=== PATIENT | female | born 1985 | race Caucasian/White ===

== ENCOUNTER 2020-03-17 16:04 | Outpatient (REF) | payer BC, SELFPAY ==
[2020-03-17 17:07] LABS: MANUAL DIFF FLAG NO
[2020-03-17 17:21] LABS: Basophils Absolute Auto 0.1 X10*3/uL (0.0-0.2); Basophils Percent Auto 0.6 % (0-2); Eosinophils Absolute Auto 0.1 X10*3/uL (0.0-0.4); Eosinophils Percent Auto 1.3 % (0-4); Hematocrit 41.3 % (37-47); Hemoglobin 13.5 g/dl (12.0-16.0); Imm Gran Abs Auto 0.03 X10*3/uL (0.00-0.03); Imm Gran Pct Auto 0.4 % (0.0-0.4); Lymphocytes Absolute Auto 2.8 X10*3/uL (1.2-4.9); Lymphocytes Percent Auto 33.2 % (20-40); Mean Corpuscular HGB Conc 32.7 g/dl (31.0-35.0); Mean Corpuscular Hemoglobin 27.7 pg (27.0-33.0); Mean Corpuscular Volume 84.6 fL (80-98); Mean Platelet Volume 9.3 fL (9.4-12.3); Monocytes Absolute Auto 0.6 X10*3/uL (0.1-1.2); Monocytes Percent Auto 7.3 % (2-11); Neutrophils Absolute Auto 4.9 X10*3/uL (2.0-8.3); Neutrophils Percent Auto 57.2 % (45-73); Platelet Count 274 X10*3/uL (160-400); Red Blood Count 4.88 X10*6/uL (4.20-5.50); Red Cell Distribution Width 13.2 % (11.0-16.0); White Blood Count 8.5 X10*3/uL (4.8-10.8)
[2020-03-17 17:30] LABS: Alanine Aminotransferase 27 U/L (0-31); Albumin Level 4.4 g/dL (3.5-5.0); Alkaline Phosphatase 69 U/L (39-117); Anion Gap 12 (12-20); Aspartate Amino Transferase 16 U/L (5-31); Bilirubin Total 0.4 mg/dL (0.0-1.0); Blood Urea Nitrogen 13 mg/dL (9-16); C Reactive Protein 0.48 mg/dL (< or = 0.50); Calcium 9.2 mg/dL (8.4-10.2); Carbon Dioxide 28 mmol/L (22-29); Chloride 104 mmol/L (96-108); Estimated Glomerular Filt Rate > 60; Glucose Random 101 mg/dL (60-115); Potassium 3.5 mmol/l (3.3-5.1); Sodium 140 mmol/L (135-145); Total Protein 7.3 g/dL (6.5-8.0)
[2020-03-17 17:52] LABS: Free T4 (Free Thyroxine) 0.91 ng/dL (0.71-1.85); Thyroid Stimulating Hormone 1.85 uIU/mL (0.32-4.0)
[2020-03-17 19:24] LABS: Glucose Urine UA NEG (NEG); Leukocyte Esterase Urine NEG (NEG); Nitrite Urine NEG (NEG); Specific Gravity - Urine 1.015 (1.005-1.025); Urine Blood NEG (NEG); Urine Ketones NEG (NEG); Urine Protein NEG (NEG-TRACE)
[2020-03-17 19:29] LABS: Appearance Urine CLEAR; Color Urine YELLOW
== END 2020-03-17 16:05 | disposition home or self-care (01) ==
LOC: HO.LAB 16:04
PROVIDERS: PCP Internal Medicine; Visit Provider Internal Medicine
DX: I10 Essential (primary) hypertension (principal); R63.5 Abnormal weight gain; E56.1 Deficiency of vitamin K
CPT/HCPCS: 36415; 80053; 81003; 84439; 84443; 85025; 86140

== ENCOUNTER 2020-03-29 10:22 | Outpatient (REF) | payer BC, SELFPAY ==
--- NOTE | 2020-03-29 | US_ITS ---
EXAMINATION: US RENAL DOPPLER US RENAL, BILATERAL CLINICAL INFORMATION: Hypertension. COMPARISON: None TECHNIQUE: Routine grayscale and color Doppler imaging of kidneys was performed. FINDINGS: The right kidney measures 11.2 cm in length, 4.67 cm in AP and 4.8 cm in width. There is normal cortical thickness. There are no echogenic stones or hydronephrosis. The left kidney measures 12.5 cm in length, 5.3 cm in AP and 5.4 cm in transverse dimension. Doppler Imaging: Right kidney: Renal artery velocity proximal segment measures 163 cm/s, mid segment measures 110 cm/s, distal segment measures 76.4 cm/s. Renal artery ratio measures 2.1. Average resistive index measures 0.69. Mid abdominal aorta velocity measures 78.4 cm/s. Left kidney: Renal artery velocity proximal segment measures 119 cm/s, mid segment measures 208 cm/s, distal segment measures 248 cm/s. Renal/aortic ratio measures 3.2. Average resistive index measures 0.68. US/US renal BI IMPRESSION: Normal bilateral renal ultrasound. Elevated mid and distal segment left renal artery velocities but normal resistive index and normal renal/aortic ratio. Findings are suspicious for mild stenosis involving the mid or the distal renal artery. Normal right renal artery Doppler exam.
--- NOTE | 2020-03-29 | US_ITS ---
EXAMINATION: US RENAL DOPPLER US RENAL, BILATERAL CLINICAL INFORMATION: Hypertension. COMPARISON: None TECHNIQUE: Routine grayscale and color Doppler imaging of kidneys was performed. FINDINGS: The right kidney measures 11.2 cm in length, 4.67 cm in AP and 4.8 cm in width. There is normal cortical thickness. There are no echogenic stones or hydronephrosis. The left kidney measures 12.5 cm in length, 5.3 cm in AP and 5.4 cm in transverse dimension. Doppler Imaging: Right kidney: Renal artery velocity proximal segment measures 163 cm/s, mid segment measures 110 cm/s, distal segment measures 76.4 cm/s. Renal artery ratio measures 2.1. Average resistive index measures 0.69. Mid abdominal aorta velocity measures 78.4 cm/s. Left kidney: Renal artery velocity proximal segment measures 119 cm/s, mid segment measures 208 cm/s, distal segment measures 248 cm/s. Renal/aortic ratio measures 3.2. Average resistive index measures 0.68. US/US renal doppler IMPRESSION: Normal bilateral renal ultrasound. Elevated mid and distal segment left renal artery velocities but normal resistive index and normal renal/aortic ratio. Findings are suspicious for mild stenosis involving the mid or the distal renal artery. Normal right renal artery Doppler exam.
== END 2020-03-29 10:23 | disposition home or self-care (01) ==
LOC: HO.US 10:22
PROVIDERS: PCP Internal Medicine; Visit Provider Internal Medicine
DX: I16.0 Hypertensive urgency (principal); R07.9 Chest pain, unspecified
CPT/HCPCS: 76775; 93975

== ENCOUNTER 2022-07-06 08:30 | Outpatient (REF) | payer BC, SELFPAY ==
[2022-07-06 09:27] LABS: Estimated Average Glucose 105 mg/dL; Hemoglobin A1c % 5.3 %
[2022-07-06 09:32] LABS: Alanine Aminotransferase 30 U/L (0-31); Albumin Level 4.7 g/dL (3.5-5.0); Alkaline Phosphatase 70 U/L (39-117); Anion Gap 15 (12-20); Aspartate Amino Transferase 20 U/L (5-31); Bilirubin Total 0.8 mg/dL (0.0-1.0); Blood Urea Nitrogen 15 mg/dL (9-16); Calcium 9.9 mg/dL (8.4-10.2); Carbon Dioxide 22 mmol/L (22-29); Chloride 109 mmol/L (96-108); Cholesterol 254 mg/dL; Estimated Glomerular Filt Rate > 60; Glucose Fasting 86 mg/dL (60-99); HDL Cholesterol 33 mg/dL; LDL Cholesterol Calculated 197 mg/dl; Potassium 3.7 mmol/L (3.3-5.1); Sodium 142 mmol/L (135-145); Total Protein 7.7 g/dL (6.5-8.0); Triglycerides 123 mg/dL
[2022-07-08 16:24] LABS: CRP High Sensitivity 2.6 mg/L
== END 2022-07-06 08:31 | disposition home or self-care (01) ==
LOC: HO.LAB 08:30
PROVIDERS: PCP Internal Medicine; Visit Provider Internal Medicine
DX: I10 Essential (primary) hypertension (principal); R07.89 Other chest pain; Z82.49 Family history of ischemic heart disease and other diseases of the circulatory system
CPT/HCPCS: 36415; 80053; 80061; 83036; 86141

== ENCOUNTER → 2022-08-15 15:04 | Outpatient (REF) | payer BC, SELFPAY ==
--- NOTE | 2022-08-15 15:07 | CA_ITS ---
Transthoracic Echocardiogram Patient (Last, First, Middle): Thelma Gallagher T Gender: Female Date of : 1985 Age: 36 Procedure Date: 08/15/2022 Procedure Type: Transthoracic Echocardiogram Location: OP Height: 152.4 cm Weight: 66.23 kg BSA: 1.63 m2 Heart Rate: bpm BP: 142 / 106 mmHg [employer] Supervisor: TO Referring MD: Rei Aleman MD Symptoms: R07.89 OTHER CHEST PAIN, HTN I10 ASSESS LV FUNCTION Study Quality: Fair ECG Rhythm: Sinus Conclusions: - The left ventricular systolic function is normal. The calculated ejection fraction is 60% by biplane method. - No obvious valvular pathology seen on this study. Findings Left Ventricle Normal left ventricular cavity size. There is normal left ventricular wall thickness. The left ventricular systolic function is normal. The calculated ejection fraction is 60% by biplane method. There is no evidence of regional wall motion abnormalities. Diastolic function is normal for age. LV peak GLS -25%. Right Ventricle Normal right ventricular cavity size and systolic function. Atria Both atria are normal in size. Aortic Valve There is a normal trileaflet aortic valve. There is no aortic valve stenosis. There is no aortic valve regurgitation. Mitral Valve The mitral valve appears normal. There is no mitral valve regurgitation. There is no mitral valve stenosis. Pulmonic Valve The pulmonic valve is likely normal. Tricuspid Valve There is trace tricuspid valve regurgitation. There is no evidence of pulmonary hypertension. Great Vessels The asc aorta is normal in size. Venous The inferior vena cava is normal in size and collapses greater than 50% with inspiration. Pericardium/Pleural There is no evidence of pericardial effusion. Prior Study Comparison No prior study available for comparison. Recommendations, Care & Conclusions No obvious valvular pathology seen on this study. Measurements 2D Linear Measurements IVSd: 0.97 0.6-0.9/0.6-1.0 cm LVIDd: 4.31 3.9-5.3/4.2-5.9 cm LVIDd Index: 2.64 2.4-3.2/2.2-3.1 cm/m2 LVIDs: 2.95 2.0-3.6 cm LVPWd: 0.82 0.7-1.1 cm LA Diam: 3.20 2.7-3.8/3.0-4.0 cm LAIDs Index: 1.96 1.5-2.3 cm/m2 LV Mass: 152.91 67-162/88-224 g LV Mass Index: 93.81 43-95/49-115 g/m2 LVOT Diam: 1.90 3.0+(-)1.3 cm 2D Systolic Function EF 4C: 58.90 >55% EF 2C: 62.70 >55% EF BiP: 60.10 >55% Mitral Valve MV Pk E: 1.14 MV PK A: 0.53 MV Decel Time: 248.00 E/A: 2.20 E'Lateral: 10.00 E'Medial: 8.27 E/E' Med: 13.80 E/E' Lat: 11.40 PHT: 73.00 MVA PHT: 3.01 Decel [place]: 4.60 Aortic Valve AoV Pk Josh: 1.43 AoV Mn Josh: 1.00 AoV VTI: 0.33 AoV Pk Grad: 8.00 Aov Mn Grad: 4.00 JACEY Cont.VTI: 1.95 LVOT LVOT Pk Josh: 0.98 LVOT Mn Josh: 0.61 LVOT VTI: 0.23 LVOT Pk Grad: 4.00 LVOT Mn Grad: 2.00 LVOT Diam: 1.90 LVOT Area: 2.84 Diastolic Function MV Pk E: 1.14 MV Pk A: 0.53 E/A: 2.20 E'Medial: 8.27 E/E' Med: 13.80 E' Laterial: 10.00 E/E' Lat: 11.40 Right Ventricle TAPSE (mm): 24.20 TVS' Josh: 11.90 Tricuspid Valve TR Pk Josh: 2.63 TR Pk Grad: 28.00 RA Press: 3.00 RVSP: 31.00 Great Vessels Aorta Sinus of Valsalva: 2.99 2.0-3.5 cm Ao Asc: 3.10 2.1-3.4 cm Updated in Other Vendor System with Status of Final Rojas Corado MD electronically signed on 08/17/2022 11:06:42 AM with status of Final
== END ==
LOC: HO.CARD 15:04
PROVIDERS: PCP Internal Medicine; Visit Provider Internal Medicine
DX: R07.89 Other chest pain (principal); I10 Essential (primary) hypertension
CPT/HCPCS: 93306; 93356

== ENCOUNTER 2022-10-09 10:24 | Outpatient (REF) | payer BC, SELFPAY ==
[2022-10-09 12:38] LABS: Cholesterol 235 mg/dL; HDL Cholesterol 34 mg/dL; LDL Cholesterol Calculated 177 mg/dl; Triglycerides 121 mg/dL
== END 2022-10-09 10:25 | disposition home or self-care (01) ==
LOC: HO.LAB 10:24
PROVIDERS: PCP Internal Medicine; Visit Provider Internal Medicine
DX: E78.00 Pure hypercholesterolemia, unspecified (principal)
CPT/HCPCS: 36415; 80061

== ENCOUNTER 2022-10-13 10:07 | Outpatient (REF) | payer BC, SELFPAY ==
[2022-10-13 10:23] LABS: MANUAL DIFF FLAG NO
[2022-10-13 10:40] LABS: Basophils Absolute Auto 0.1 X10*3/uL (0.0-0.2); Basophils Percent Auto 0.8 % (0-2); Eosinophils Absolute Auto 0.1 X10*3/uL (0.0-0.4); Eosinophils Percent Auto 1.7 % (0-4); Hematocrit 39.8 % (37.0-47.0); Hemoglobin 12.9 g/dl (12.0-16.0); Imm Gran Abs Auto 0.02 X10*3/uL (0.00-0.03); Imm Gran Pct Auto 0.3 % (0.0-0.4); Lymphocytes Absolute Auto 2.4 X10*3/uL (1.2-4.9); Lymphocytes Percent Auto 31.9 % (20-40); Mean Corpuscular HGB Conc 32.4 g/dl (31.0-35.0); Mean Corpuscular Hemoglobin 28.8 pg (27.0-33.0); Mean Corpuscular Volume 88.8 fL (80.0-98.0); Mean Platelet Volume 10.2 fL (9.4-12.3); Monocytes Absolute Auto 0.5 X10*3/uL (0.1-1.2); Neutrophils Absolute Auto 4.4 x10*3/uL (2.0-8.3); Neutrophils Percent Auto 58.3 % (45-73); Platelet Count 251 X10*3/uL (160-400); Red Blood Count 4.48 X10*6/uL (4.20-5.50); Red Cell Distribution Width 14.2 % (11.0-16.0); White Blood Count 7.5 X10*3/uL (4.8-10.8)
[2022-10-13 10:53] LABS: Estimated Average Glucose 88 mg/dL; Hemoglobin A1c % 4.7 %
[2022-10-13 11:20] LABS: Alanine Aminotransferase 13 U/L (0-31); Albumin Level 4.3 g/dL (3.5-5.0); Alkaline Phosphatase 55 U/L (39-117); Anion Gap 11 (12-20); Aspartate Amino Transferase 12 U/L (5-31); Bilirubin Total 0.5 mg/dL (0.0-1.0); Blood Urea Nitrogen 15 mg/dL (9-16); C Reactive Protein < 0.10 mg/dL (< or = 0.50); Carbon Dioxide 25 mmol/L (22-29); Chloride 110 mmol/L (96-108); Estimated Glomerular Filt Rate > 60; Glucose Random 95 mg/dL (60-115); Magnesium 2.2 mg/dL (1.6-2.6); Sodium 142 mmol/L (135-145); Total Protein 7.4 g/dL (6.5-8.0)
[2022-10-13 11:26] LABS: Free T4 (Free Thyroxine) 1.03 ng/dL (0.71-1.85); Thyroid Stimulating Hormone 1.28 uIU/mL (0.32-4.0)
[2022-10-17 17:18] LABS: Lyme Abs Screen <0.90 index
== END 2022-10-13 10:08 | disposition home or self-care (01) ==
LOC: HO.LAB 10:07
PROVIDERS: PCP Internal Medicine; Visit Provider Internal Medicine
DX: I10 Essential (primary) hypertension (principal); E87.1 Hypo-osmolality and hyponatremia; R73.09 Other abnormal glucose
CPT/HCPCS: 36415; 80053; 82550; 83036; 83735; 84439; 84443; 85025; 86140; 86617; 86618

== ENCOUNTER 2022-10-31 11:20 | Outpatient (REF) | payer BC, SELFPAY ==
[2022-10-31 13:09] LABS: MANUAL DIFF FLAG NO
[2022-10-31 13:13] LABS: Basophils Absolute Auto 0.1 X10*3/uL (0.0-0.2); Basophils Percent Auto 0.8 % (0-2); Eosinophils Absolute Auto 0.2 X10*3/uL (0.0-0.4); Eosinophils Percent Auto 1.7 % (0-4); Hematocrit 39.3 % (37.0-47.0); Hemoglobin 13.1 g/dl (12.0-16.0); Imm Gran Abs Auto 0.03 X10*3/uL (0.00-0.03); Imm Gran Pct Auto 0.3 % (0.0-0.4); Lymphocytes Absolute Auto 2.5 X10*3/uL (1.2-4.9); Lymphocytes Percent Auto 29.6 % (20-40); Mean Corpuscular HGB Conc 33.3 g/dl (31.0-35.0); Mean Corpuscular Hemoglobin 29.1 pg (27.0-33.0); Mean Corpuscular Volume 87.3 fL (80.0-98.0); Mean Platelet Volume 10.9 fL (9.4-12.3); Monocytes Absolute Auto 0.6 X10*3/uL (0.1-1.2); Monocytes Percent Auto 7.1 % (2-11); Neutrophils Absolute Auto 5.2 x10*3/uL (2.0-8.3); Neutrophils Percent Auto 60.5 % (45-73); Platelet Count 257 X10*3/uL (160-400); Red Cell Distribution Width 13.2 % (11.0-16.0); White Blood Count 8.6 X10*3/uL (4.8-10.8)
[2022-10-31 13:48] LABS: Alanine Aminotransferase 17 U/L (0-31); Albumin Level 4.3 g/dL (3.5-5.0); Alkaline Phosphatase 55 U/L (39-117); Anion Gap 18 (12-20); Aspartate Amino Transferase 19 U/L (5-31); Bilirubin Total 0.6 mg/dL (0.0-1.0); Blood Urea Nitrogen 10 mg/dL (9-16); C Reactive Protein 0.78 mg/dL (< or = 0.50); Calcium 9.9 mg/dL (8.4-10.2); Carbon Dioxide 23 mmol/L (22-29); Chloride 106 mmol/L (96-108); Estimated Glomerular Filt Rate > 60; Glucose Random 96 mg/dL (60-115); Potassium 3.7 mmol/L (3.3-5.1); Sodium 143 mmol/L (135-145); Total Protein 7.8 g/dL (6.5-8.0)
[2022-10-31 13:49] LABS: Appearance Urine Clear; Color Urine Yellow; Glucose Urine UA Negative (Negative); Leukocyte Esterase Urine Negative (Negative); Nitrite Urine Negative (Negative); Specific Gravity - Urine <= 1.005 (1.005-1.025); Urine Blood Negative (Negative); Urine Ketones 15 mg/dL (Negative); Urine Protein Negative (Neg-Trace)
[2022-10-31 13:50] LABS: Erythrocyte Sedimentation Rate 20 MM/HR (0-20)
[2022-10-31 13:53] LABS: Bacteria Urine None Seen (None Seen); Hyaline Casts Urine 0-2 /LPF (0-2); RBC Urine 0-2 /HPF (0-2); Squamous Epithelial Cell Urine 0-2 /HPF (0-2); WBC Urine 0-5 /HPF (0-5)
[2022-10-31 14:08] LABS: Vitamin B12 1446 pg/mL (200-900)
== END 2022-10-31 11:21 | disposition home or self-care (01) ==
LOC: HO.10HDL 11:20
PROVIDERS: Visit Provider Internal Medicine
DX: R63.4 Abnormal weight loss (principal); M54.9 Dorsalgia, unspecified; I10 Essential (primary) hypertension; R53.83 Other fatigue
CPT/HCPCS: 36415; 80053; 81001; 82550; 82607; 84443; 85025; 85652; 86140; 87086

== ENCOUNTER 2022-12-25 08:04 | Outpatient (REF) | payer BC, SELFPAY ==
--- NOTE | ~2022-12-25 | MR_ITS ---
EXAMINATION: MR BRAIN WITH AND WITHOUT CONTRAST CLINICAL INFORMATION: Seizure COMPARISON: None. TECHNIQUE: MRI of the brain was obtained using routine sequences before and following administration of intravenous contrast. A total of 4 mL of Gadavist was administered intravenously. FINDINGS: Dedicated coronal oblique imaging through the temporal lobes reveal symmetric appearance of the bilateral hippocampi with normal morphology and signal intensity. No evidence of mesial temporal sclerosis. No identifiable malformation of cortical development. No acute infarct. The GRE sequence is without susceptibility artifact to suggest acute or chronic blood products. No extra-axial fluid collection. The ventricles and sulci are normal in size and configuration without significant volume loss or hydrocephalus. Nonspecific 3 mm T2 FLAIR hyperintense focus within the left frontal opercular subcortical white matter. No abnormal intraparenchymal or leptomeningeal enhancement. No significant mass effect or herniation pattern. The intracranial dural venous sinus and arterial flow voids are preserved. Normal appearance of the midline structures. The orbits are grossly unremarkable. Trace ethmoid air cell mucosal thickening. No mastoid effusion. Enlarged right lateral retropharyngeal lymph node measuring 9 mm in long axis with adenoidal tonsillar hyperplasia, presumably reactive. Normal marrow signal. 7 mm subcutaneous cystic lesion within the high right frontal scalp abutting the dermis with bulge of the overlying skin contour may reflect a sebaceous versus trichilemmal cyst. MR/MR head/brain wo/w con IMPRESSION: No structural epileptogenic lesion identified within limitations of a 1.5 Urmila examination without 3D T1-weighted CUBE sequence. No pathologic intracranial enhancement. Nonspecific T2 FLAIR hyperintense focus within the left frontal subcortical white matter of doubtful clinical significance.
[2022-12-25] MEDS: gadobutroL 7.5 ML VIAL IVPUSH (09:16)
== END 2022-12-25 08:05 | disposition home or self-care (01) ==
LOC: HO.MRI 08:04
PROVIDERS: PCP Internal Medicine; Visit Provider Psychiatry & Neurology Neurology
DX: R56.9 Unspecified convulsions (principal)
CPT/HCPCS: 70553; A9585

== ENCOUNTER 2024-03-11 15:59 | Outpatient (REF) | payer BC, SELFPAY ==
[2024-03-12 08:20] LABS: HBS Num1 > 1000.00 mIU/mL (0-7.99); ~Hepatitis B Surface Antibody REACTIVE (Nonreactive)
[2024-03-12 11:03] LABS: Rubeola IgG (Measles) >300.00 AU/mL; Varicella IgG Antibody 3.41 S/CO
== END 2024-03-11 16:00 | disposition home or self-care (01) ==
LOC: HO.LAB 15:59
PROVIDERS: PCP Internal Medicine; Visit Provider Internal Medicine
DX: Z02.1 Encounter for pre-employment examination (principal)
CPT/HCPCS: 36415; 86706; 86735; 86765; 86787

== ENCOUNTER 2025-01-28 08:33 | Outpatient (AMB) | payer BC, SELFPAY ==
--- NOTE | 2025-01-28 08:12 | A.OFFPC_ITS ---
Vital Signs 01/28/25 08:40 01/28/25 09:20 Height 4 ft 11.13 in Weight 63.503 kg BMI 28.1 BP 136/100 H 128/88 Blood Pressure Location Lt brachial Position Sitting Respiration 18 Pulse 47 L Pulse Source Pulse Oximeter Temp 97.6 F Temp Source Temporal Artery Scan Pulse Oximetry (%) 100 Oxygen Delivery Method Room Air Intake Visit Reasons: PHYSICAL [employer] Worker Required: No Accompanied by: Self / Same As Patient Allergies No Known Allergies Allergy (Verified 01/28/25 08:12) Tobacco use date assessed: 01/28/25 Dental Screening Dental Screen Date: 01/28/25 Did you have a dental visit in the last 12 months?: Yes Did you have a dental problem in the last 6 months where you did not have access to dental care?: No Was dental information given to patient?: Patient has dentist HPI HPI Comments History of Present Illness Details 39-year-old female with history of major depressive disorder, anxiety, adrenal mass with complications presenting to the office today to establish care and for annual physical exam. Last seen by Dr Aleman, last seen Apr 2024. She currently lives with her and children. 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 denies any alcohol consumption since serious health issues over the last few years. Denies any history of cigarette smoking. No illicit drug use or marijuana use. She follows a very healthy diet since health issues. Exercises as well. MDD/ALYSSIA-on sertraline 25 mg, BuSpar 5 mg twice daily and lorazepam 0.5 mg nightly as needed. Currently enrolled in an intensive outpatient program which she has been attending since August 27. Program through [facility] of lung med 0, has both therapist and psychiatrist there. Reports the program is 3 nights weekly through telehealth in 1 in-person day on Sunday. Reports anxiety and depression has significantly worsened following major health issues listed below. Due to multiple hospitalizations, she had been out of work for total of 66 weeks which triggered traumatic memories and again worsened mood. Has not required any inpatient hospitalizations for psychiatric conditions since childhood. Left adrenal gland/mass removed- 2022. Hormone producing mass resulting in hypertensive urgency and VT, seizures, hypokalemia. Has since been following with multiple specialties at [facility]-epilepsy clinic reports most recent EEGs have been negative for any evidence of epilepsy. 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 Has loop recorder in place. Was also managed on the complex hypertension clinic. Also endocrinology. Following excision antihypertensives were discontinued and she had been stable until last week when she developed a terrible headache and flushing with blood pressure of 180/110. Her nondestructive tester restarted her on amlodipine 5 mg twice daily as well as losartan 25 mg daily. She is also noted to have high protein, high calcium and was referred back to Endocrinology. There is no question of similar pathology of the right adrenal gland. She is unsure of the biopsy results from the left adrenal. Will request notes from specialists. 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 Did require Clomid for ovulation. Reports late puberty and irregular menses History of cervical cancer-recurrent 2022 and 2024. Underwent cone. Follows with [facility] ob gyn physician assistant and has upcoming appointment next month Migraine headaches-ongoing since childhood. Uses Fioricet sparingly Concerns: As above Health maintenance: Last mammogram 08/2023, negative for malignancy. Overdue Last Pap 07/2022, 5 year follow-up. [place] [facility]opies started age 43 Eye exam up-to-date Dental exams up-to-date ROS: General: No fevers, malaise, unintentional weight loss HEENT: No blurred vision, diplopia. No sore throat, nasal congestion, rhi norrhea, sinus pain, ear pain. No hearing loss Neck - no adenopathy Cardiovascular: No chest pain, palpitations, or leg edema Respiratory: No shortness of breath, wheezing, cough Breast: No pain, palpable lumps, nipple inversion Endo: See hpi GI: No dysphagia, odynophagia, globus sensation. No abdominal pain, nausea, vomiting, diarrhea, constipation, melena, hematochezia : No dysuria, hematuria, increased urinary frequency, decreased urinary output. 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 No SI/HI. See above Skin: No rashes or lesions EXAM: Constitutional - Awake and Alert, No apparent distress Eyes - PERRLA, EOMI. Anicteric Ears - external ears normal, canals clear, TMs intact and pearly orozco with good cone of light Nose- septum midline, nares clear, no sinus tenderness Mouth/throat- mucosa moist, tongue and uvula midline, no erythema/edema or tonsillar adenopathy. Neck-trachea midline, thyroid symmetric without palpable nodules, no adenopathy Cardiovascular - S1S2, RRR, No edema Respiratory - Normal lung expansion, Normal respiratory effort, No respiratory distress, CTA bilaterally Gastrointestinal - NT / ND; +BS; No rebound or guarding - No CVA tenderness Extremities - no calf tenderness bilaterally, no swelling Musculoskeletal - Normal inspection, normal ROM Skin - Warm/Dry, no concerning lesions Neurological - Alert & oriented x3, CN II-XII in tact, 5/5 strength BUE and BLE, 2+ patellar reflexes, sensation intact Psychological - Appropriate affect [facility] Medical History Migraines Meningitis spinal ALYSSIA (generalized anxiety disorder) MDD (major depressive disorder) Surgical History History of total adrenalectomy Family History Father Diabetes CHF (congestive heart failure) S/P CABG (coronary artery bypass graft) Polysubstance abuse Hepatitis C HTN (hypertension) Mother Polysubstance abuse COPD (chronic obstructive pulmonary disease) HTN (hypertension) Mental health disorder Maternal Grandmother Colon cancer Paternal Grandfather Colon cancer Myocardial infarct Social History Housing: House Patient Tobacco Use Status: Never used Tobacco e-Cigarette/Vaping Use: Never Used service: No Current occupational status: employed Current occupation: [employer] Questionnaire AUDIT C Alcohol Use Questionnaire (AUDIT-C) 1. How often do you have a drink containing alcohol?: Never 3. How often do you have six or more drinks on one occasion?: Never Total Score: 0 Physical exam (Primary Care) Vital Signs: Last Vital Signs Temp 97.6 F 01/28/25 08:40 Pulse 47 L 01/28/25 08:40 Resp 18 01/28/25 08:40 BP 128/88 01/28/25 09:20 Pulse Ox 100 01/28/25 08:40 Oxygen Delivery Method Room Air 01/28/25 08:40 BMI result Body Mass Index 28.1 Tobacco/Smoking Status: Tobacco use Status Tobacco use date assessed 01/28/25 01/28/25 08:12 Patient Tobacco Use Status Never used Tobacco 01/28/25 08:42 e-Cigarette/Vaping Use Never Used 01/28/25 08:42 Coding Level of Care Code Est Pt Level 5 (42090) Est Pt Prev Care 40-64y(09764) Diagnoses Routine medical exam Z00.00 MDD (major depressive disorder) F32.9 ALYSSIA (generalized anxiety disorder) F41.1 Migraines G43.909 Comment Modifier 25 Assessment & Plan Assessment & Plan (1) Routine medical exam: Code(s): Z00.00 - Encounter for general adult medical examination without abnormal findings Category: Medical Plan: 39 year old female presenting for annual phyiscal exam and establish care. Plan as below. (2) MDD (major depressive disorder): Code(s): F32.9 - Major depressive disorder, single episode, unspecified Category: Medical Plan: Stable. Continue following with outpatient treatment group. Continue following with counselor and psychiatrist through this program. For now, continue BuSpar, sertraline, lorazepam PRN. No alarm symptoms (3) ALYSSIA (generalized anxiety disorder): Code(s): F41.1 - Generalized anxiety disorder Category: Medical Plan: As above (4) Migraines: Code(s): G43.909 - Migraine, unspecified, not intractable, without status migrainosus Category: Medical Plan: Fioricet refill provided Plan Routine screening labs as ordered below Continue with screening mammograms, Pap smears, colonoscopies Continue following for annual skin exams and use sun protection Annual eye exams Wear seat belt in car Recommend regular exercise and healthy diet Follow up in 6 months Notes to be requested from [facility] and [facility] ob gyn physician assistant Orders: Orders Microalbumin, Random (w Creat) Today Z00.00 - Encounter for general adult medical examination without abnormal findings Hemoglobin A1c Today Z00.00 - Encounter for general adult medical examination without abnormal findings Lipid Panel Today Z00.00 - Encounter for general adult medical examination without abnormal findings TSH reflex Free T4 Today Z00.00 - Encounter for general adult medical examination without abnormal findings Vitamin D 25-OH Total Today Z00.00 - Encounter for general adult medical examination without abnormal findings Parathyroid Hormone Intact Today E83.52 - Hypercalcemia Basic Metabolic Panel Today Z00.00 - Encounter for general adult medical examination without abnormal findings Liver Panel Today Z00.00 - Encounter for general adult medical examination without abnormal findings Complete Blood Count Auto Diff Today Z00.00 - Encounter for general adult medical examination without abnormal findings MM tomosynthesis screening BI Today Z12.31 - Encounter for screening mammogram for malignant neoplasm of breast
[2025-01-28 08:40] VITALS: BP 136/100; PULSE 47; RESP 18; TEMP 36.4; O2SAT 100; BMI 28.1
--- OUTSIDE RECORDS SUMMARY | 2025-01-28 08:47 | XMS_ITS | Clinical Summary ---
Author Organization [facility] Address [address] [place] [address] Care Team Providers Care Room Service Runner Name Role Phone Rei Aleman Primary Care Provider [phone] Allergies No known active allergies Medications propranoloL (INDERAL) 10 mg tablet Take 80 mg by mouth 3 times a day. Active lamoTRIgine (LaMICtal) 25 mg tablet Take 25 mg by mouth once a day. Active losartan (COZAAR) 50 mg tablet Take 50 mg by mouth 2 times a day. Active Social History Tobacco Use Types Packs/Day Years Used Date Smoking Tobacco: Never Smokeless Tobacco: Never Alcohol Use Standard Drinks/Week Comments Not Currently 0 (1 standard drink = 0.6 oz pur e alcohol) Comments Unknown Sex and Gender Information Value Date Recorded Sex Assigned at Not on file Legal Sex Female 3:23 PM EDT Gender Identity Not on file Sexual Orientation Not on file Last Filed Vital Signs Vital Sign Reading Time Taken Comments Blood Pressure 115/94 01/25/2023 8:00 PM EDT Pulse 74 01/25/2023 8:00 PM EDT Temperature 36.7 C (98.1 F) 01/25/2023 3:47 PM EDT Respiratory Rate 18 01/25/2023 6:30 PM EDT Oxygen Saturation 98% 01/25/2023 6:30 PM EDT Inhaled Oxygen Concentration - - Weight 47.6 kg (105 lb) 01/25/2023 3:47 PM EDT Height - - Body Mass Index - - Plan of Treatment Health Maintenance Due Date Last Done Comments Cervical Cancer Screening 1985 HIV Screening 1985 HPV and Pap Smear 1985 Hepatitis C Screening 1985 Pap Smear 1985 Varicella Vaccines (1 of 2 - 13+ 2-dose series) 09/05/1996 Hepatitis B Vaccines (1 of 3 - 19+ 3-dose series) 09/05/2002 DTaP,Tdap,and Td Vaccines (1 - Tdap) 09/05/2005 Mammogram 2023 Alcohol/Substance Use Screening 03/26/2024 Depression Screening and Follow-Up 03/26/2024 Social Drivers of Health Annual Screening 03/26/2024 COVID-19 Vaccine (4 - 2024-2 6 season) 2024 01/28/2021, 07/16/2020, 06/18/2020 Influenza Vaccine (#1) 2024 , 12/24/2018, 12/25/2017 Pneumococcal Vaccine: Pediatric (0-5 Years) and At-Risk Patients (6-50 Years) Aged Out No longer eligible based on patient's age to complete this topic Insurance [facility] [place] [id number] [facility] PPO/EPO Care Teams Room Service Runner Relationship Specialty Start Date End Date Rei Aleman [address] [place] [address] [place] [id number] PCP - General Internal Medicine 01/25/23
--- OUTSIDE RECORDS SUMMARY | 2025-01-28 08:47 | XMS_ITS | Clinical Summary ---
Author Organization [address] [facility] Address [address] [place] [address] Phone Care Team Providers Care Communication Center Operator Name Role Phone Rei Aleman MD Primary Care Provider [phone] Encounters Date Type Department Care Team Description 12/24/2024 12:20 PM EDT Ancillary Procedure [facility] [address] [facility] [address] [place] [address] from Last 3 Months Medical History Medical History Date Comments HTN (hypertension) DX:HTN (hyper tension) Seizure (CMS/HCC V24, CMS/HCC V28) DX:Seizure (HCC) Social History Tobacco Use Types Packs/Day Years Used Date Smoking Tobacco: Never Smokeless Tobacco: Never Alcohol Use Standard Drinks/Week Comments Never 0 (1 standard drink = 0.6 oz pur e alcohol) Comments Unknown Sex and Gender Information Value Date Recorded Sex Assigned at Not on file Legal Sex Female 5:29 PM EST Gender Identity Not on file Sexual Orientation Not on file Obstetrics History Plan of Treatment Health Maintenance Due Date Last Done Comments Breast Cancer Screening 1983 DTaP,Tdap,and Td Vaccines (1 - Tdap) 09/05/2002 Hepatitis B Vaccines (1 of 3 - 19+ 3-dose series) 09/05/2002 Cervical Cancer Screening: Pap Smear 09/05/2004 HPV Vaccines (1 - 3-dose SCDM series) 09/05/2010 HIV Screening 04/24/2023 Hepatitis C Screening 04/24/2023 Social Influencers of Health Screening 04/24/2023 Depression Screening 03/26/2024 COVID-19 Vaccine ( season) 2024 01/28/2021, 07/16/2020, 06/18/2020 Influenza Vaccine (#1) 2024 , 06/25/2023, 02/04/2023, Additional history exists Hypertension/CHF/CAD Annual BMP Blood Test 05/09/2025 05/09/2024, 05/09/2024, 03/03/2024, Additional history exists Cholesterol Screening (Lipid Panel) 05/07/2028 05/07/2023 RSV Immunization Adult Patients (1 - 1-dose 75+ series) 09/05/2058 HIB Vaccines Aged Out No longer eligi ble based on patient's age to complete this topic Hepatitis A Vaccines Aged Out No long er eligible based on patient's age to complete this topic IPV Vaccines Aged Out No longer eligi ble based on patient's age to complete this topic MMR Vaccines Aged Out No longer eligi ble based on patient's age to complete this topic Meningococcal ACWY Vaccine Aged Out N o longer eligible based on patient's age to complete this topic Meningococcal B Vaccine Aged Out No l onger eligible based on patient's age to complete this topic Pneumococcal Vaccine: Pediatrics (0 to 5 Years) and At-Risk Patients (6 to 49 Years) Aged Out No longer eligible based on patient's age to complete this topic RSV Immunization Patients Under 20 months Aged Out No longer eligible based on patient's age to complete this topic Varicella Vaccines Aged Out No longer eligible based on patient's age to complete this topic Medical Devices Implanted Type Area Rustic Terrazzo Setter Device Identifier Shelf Expiration Date Model / Serial / Lot Bsci-Crm [id number] Implanted:09/23 (Quantity not on file) Cardiac Loop Recorder [employer] MGMT [id number] / [id number] / Procedures Procedure Name Priority Date/Time Associated Diagnosis Comments CARDIAC DEVICE CHECK- REMOTE- MURJ Routine 12/24/2024 12:18 PM EDT from Last 3 Months Results * Cardiac device check - Remote- MURJ (12/24/2024 12:18 PM EDT) Date Time Interrogation Session [id number] CV DEVICE CHECK Type Interrogation Session Remote Scheduled CV DEVICE CHECK Implantable Pulse Generator Rustic Terrazzo Setter BSX CV DEVICE CHECK Implantable Pulse Generator Type ILR CV DEVICE CHECK Implantable Pulse Generator Model M301 CV DEVICE CHECK Implantable Pulse Generator Serial Number [id number] CV DEVICE CHECK Implantable Pulse Generator Implant Date [id number] CV DEVICE CHECK Battery Status Beginning of Service CV DEVICE CHECK Atrial Tachy Statistic AT/AF [place] Percent 0.00 CV DEVICE CHECK Date of Service 2024-12-23 CV DEVICE CHECK Anatomical Region Laterality Modality Device Interroga tion 12/18/2024 12:5 1 AM EDT Impressions 12/23/2024 12:25 PM EDT Normal Remote: No Events * This is a normal remote diagnostic device check * Alerts or events: None * Battery data was reviewed * Battery status: JOSELIN, * Presenting rhythm reviewed * Heart Rate Histograms reviewed Narrative Procedure Note Dwight Atwood MD - 12/24/2024 IMPRESSION: Normal Remote: No Events * This is a normal remote diagnostic device check * Alerts or events: None * Battery data was reviewed * Battery status: JOSELIN, * Presenting rhythm reviewed * Heart Rate Histograms reviewed Dwight Atwood MD CV IMPLANTABLE CARDIAC DEVICE PROCEDURES Final Result from Last 3 Months Insurance [facility] Advance Directives Documents on File Type Date Recorded Patient New Product Trainer Expl anation Health Care Decision (hx) 03/27/2023 AD LUCAS DIRECTIVE Health Care Decision (hx) 03/27/2023 AD LUCAS DIRECTIVE Care Teams Communication Center Operator Relationship Specialty Start Date End Date Rei Aleman MD [address] [place] [address] Dr Emory [place] PCP - General 10/24/22
[2025-01-28 09:20] VITALS: BP 128/88
== END 2025-01-28 09:25 | disposition home or self-care (01) ==
LOC: HO.HMCHD 08:33
PROVIDERS: PCP Internal Medicine; Visit Provider Physician Assistant
DX: Z00.00 Encounter for general adult medical examination without abnormal findings (principal); F32.9 Major depressive disorder, single episode, unspecified; F41.1 Generalized anxiety disorder; G43.909 Migraine, unspecified, not intractable, without status migrainosus